=== PATIENT | female | born 1980 | race Caucasian/White ===

== ENCOUNTER 2021-03-18 15:56 | Emergency (ER) | payer OTHER, MEDICAID, SELFPAY ==
[2021-03-18 16:16] VITALS: BP 152/94; PULSE 87; RESP 12; TEMP 37.2; O2SAT 98; BMI 29.2
[2021-03-18] MEDS: KETOROLAC 30 MG/ML VIAL 15 MG IV (16:58)
--- NOTE | 2021-03-18 17:00 | ED_ITS ---
HPI - Abdominal Pain <MONI PayanP - Last Filed: 03/18/21 20:31> General Chief Complaint: Abdominal Pain Stated Complaint: Left Sided Abd Pain Time Seen by Provider: 03/18/21 15:59 Source: patient Mode of arrival: Ambulatory Limitations: no limitations History of Present Illness HPI narrative: This is a 40 year female, nonsmoker, has history of appendectomy who presents to ED with friend with chief complain of left low abdominal pain for 72 hours. Three days ago abdominal pain started on bilateral low abdomen and describes as discomfort as after strenuous exercise or labor pain like contraction, pulled muscle and spasming and rates as 3/10. Since yesterday pain is residing more consistently on left low abdomen. She reports frequent right-sided ovarian discomfort during ovulation which feels similar. Patient currently is a menses which started yesterday. Patient reports increased urination but denies other urinary symptoms such as dysuria, frequency, or hematuria. Patient reports pain increases with movements. Patient is not sure of fever or chills. Had some nausea this morning without vomiting. Last bowel movement this morning but noticed has been light in color as beige. Patient 2nd dose of COVID vaccination Moderna last week. Patient reports had similar colon pain when consumes cheese, cured meats or after drinking. PCP Dr. Stinson in [place]. Related Data Allergies Allergy/AdvReac Type Severity Reaction Status Date / Time Penicillins Allergy Verified 03/18/21 16:23 Review of Systems <Christiano Bryant [facility] - Last Filed: 03/18/21 20:31> Review of Systems Narrative: General: See HPI HEENT: Denies sinus pain, ear pain, sore throat, difficulty swallowing, dizziness. Respiratory: Denies dyspnea, cough, wheezing, hemoptysis, sputum. Cardiovascular: Denies chest pain, palpitations, orthopnea, edema. Gastrointestinal: See HPI : See HPI Musculoskeletal: Denies weakness, joint pain or bony pain. Skin: Denies rash, skin lesions, or other. Neurologic: Denies weakness, headache, numbness, change in speech, confusion, seizures, incoordination. Psychiatric: No concerning psychosocial issues. 12-point review of systems is negative except for those stated above. Patient History [facility] Last Filed: 03/18/21 20:31> Social History (Updated 03/18/21 @ 17:08 by JOE Payan) Smoking Status: Never smoker alcohol intake: never substance use type: does not use Smoking Status: Never smoker Substance Use Type: does not use Exam <JOE Payan - Last Filed: 03/18/21 20:31> Narrative Exam Narrative: GEN: Alert, oriented x 3, well appearing and nourished, and in no acute distress. Head: Normal cephalic, atraumatic. No scalp or temporal tenderness, palpable mass or rash. EYES: Pupils are equal, round, and reactive to light and accommodation. Extraocular muscles are intact bilaterally. There is no subconjunctival hemorrhage, exudate and sclera non-icteric. ENT: Hearing grossly intact. Airway patent. Neck: Trachea in midline. No JVD, non-tender without lymphadenopathy. No masses or thyroid megaly. Supple, non-tender and no meningeal signs. CARDIAC: Normal regular rate and rhythm without murmurs, gallops, or rubs. No chest wall tenderness. No peripheral edema, cyanosis or pallor. Capillary refill is less than 2 seconds. RESPIRATORY: Lungs are clear to auscultate bilaterally. No cough, wheezes, rales, or rhonchi. No stridor, respiratory distress, increase work of breathing, or accessary muscle used. ABD: Abdomen soft and non-distended. Tender to palpate in Left mid low quadrant. No guarding or rebound tenderness to palpate. Bowel sounds are normal in all 4 quadrants. There is no palpable masses or organomegaly. EXT: Full painless ROM of all extremities with no loss of sensation, strength, effusion or edema. SKIN: Warm, dry, normal color for patient. No erythema, lesions or rash over visible areas. BACK: Nontender without deformity or crepitance. No flank tenderness. NEUROLOGICAL: Alert and oriented to place, time and person. Sensation and motor function intact bilaterally. No facial droops, dysphasia. PSYCHIATRIC: Good judgement and reason, without hallucinations, abnormal affect or abnormal behaviors during the examination. Patient is not suicidal. Initial Vital Signs Initial Vital Signs: Vital Signs Temperature 98.9 F 03/18/21 16:16 Pulse Rate 87 03/18/21 16:16 Respiratory Rate 12 03/18/21 16:16 Blood Pressure 152/94 H 03/18/21 16:16 Pulse Oximetry 98 03/18/21 16:16 <Eladio Mejia DO - Last Filed: 03/19/21 07:15> Initial Vital Signs Initial Vital Signs: Vital Signs Temperature 98.9 F 03/18/21 16:16 Pulse Rate 87 03/18/21 16:16 Respiratory Rate 12 03/18/21 16:16 Blood Pressure 152/94 H 03/18/21 16:16 Pulse Oximetry 98 03/18/21 16:16 Scores <JOE Payan - Last Filed: 03/18/21 20:31> GCS [place] coma scale eye opening: Spontaneous [place] coma scale verbal response: Orientated [place] coma scale motor response: Obey commands [place] coma scale total score: 15 qSOFA Altered Mental Status (GCS <15): No Respiratory rate greater than/equal to 22: No Systolic blood pressure less than or equal to 100: No qSOFA Total: 0 0-1 Not High Risk 1-3 High risk Course <JOE Payan - Last Filed: 03/18/21 20:31> Orders Ordered: Discontinued Medications Ketorolac Tromethamine (Ketorolac 30 Mg/Ml Vial) 15 mg IV NOW ONE Stop: 03/18/21 16:31 Last Admin: 03/18/21 16:58 Dose: 15 mg Documented by: CHARLES Nguyen Consultation #1: Patient reports pain improved after Toradol administration. Informed the patient on mildly elevated WBC and additional imaging test has been ordered and verbalized the understanding. Time: 17:30 Vital Signs Vital signs: Vital Signs - 8 hr 03/18/21 16:16 03/18/21 17:44 03/18/21 17:47 Temperature 98.9 F Pulse Rate 87 75 76 Respiratory Rate 12 Blood Pressure 152/94 H 120/65 Pulse Oximetry 98 99 100 03/18/21 18:00 03/18/21 18:30 03/18/21 19:00 Temperature Pulse Rate 69 63 64 Respiratory Rate Blood Pressure 116/62 110/64 115/66 Pulse Oximetry 98 98 97 <Eladio Mejia DO - Last Filed: 03/19/21 07:15> Orders Ordered: Discontinued Medications Ketorolac Tromethamine (Ketorolac 30 Mg/Ml Vial) 15 mg IV NOW ONE Stop: 03/18/21 16:31 Last Admin: 03/18/21 16:58 Dose: 15 mg Documented by: CHARLES Vital Signs Vital signs: Vital Signs - 8 hr 03/18/21 16:16 03/18/21 17:44 03/18/21 17:47 Temperature 98.9 F Pulse Rate 87 75 76 Respiratory Rate 12 Blood Pressure 152/94 H 120/65 Pulse Oximetry 98 99 100 03/18/21 18:00 03/18/21 18:30 03/18/21 19:00 Temperature Pulse Rate 69 63 64 Respiratory Rate Blood Pressure 116/62 110/64 115/66 Pulse Oximetry 98 98 97 MDM - Abdominal Pain <JOE Payan - Last Filed: 03/18/21 20:31> Differential Diagnosis Differential diagnosis: Likely calculus of kidney, diverticulitis and other (ectopic ) Medical Records Attestation: I reviewed the patient's medical records. Lab Data Attestation: I reviewed the patient's lab results. Result diagrams: 03/18/21 16:56 03/18/21 16:56 Labs: Lab Results 03/18/21 03/18/21 03/18/21 Range/Units 16:56 16:56 16:56 WBC 11.1 H (4.5-11.0) X10^3/uL RBC 4.46 (4.0-5.2) X10^6/uL Hgb 13.0 (12.0-16.0) g/dL Hct 38.7 (36-46) % MCV 86.7 (80-100) fL MCH 29.2 (26-34) PG MCHC 33.7 (30-36) % RDW 12.7 (11.6-14.8) % Plt Count 244 (150-400) X10^3/uL Neut % (Auto) 72.7 (50-75) % Lymph % (Auto) 20.6 L (25-40) % Reeves % (Auto) 4.9 (3-14) % Eos % (Auto) 0.5 L (2-4) % Baso % (Auto) 1.3 (0-2) % Neut # (Auto) 8100 H (4769-0054) /uL Lymph # (Auto) 2300 (3827-9335) /uL Reeves # (Auto) 500 (0-900) /uL Eos # (Auto) 100 (0-450) /uL Baso # (Auto) 100 (0-100) /uL Sodium 140 (137-145) mmol/L Potassium 3.5 (3.4-5.1) mmol/L Chloride 106 (98-107) mmol/L Carbon Dioxide 24 (22-32) mmol/L BUN 8 (7-17) mg/dL Creatinine 0.63 (0.52-1.04) mg/dL Estimated GFR > 60.0 (>60) mL/min BUN/Creatinine Ratio 12.7 (6-22) Glucose 90 (70-100) mg/dL Lactate 1.0 (0.7-2.1) mmol/L Calcium 9.4 (8.4-10.2) mg/dL Total Bilirubin 0.2 (0.2-1.3) mg/dL AST 20 (14-36) IU/L ALT 12 (<35) IU/L Alkaline Phosphatase 37 L (38-126) U/L Total Protein 7.8 (6.3-8.2) g/dL Albumin 4.5 (3.5-5.0) g/dL Globulin 3.3 (1.7-4.1) g/dL Albumin/Globulin Ratio 1.4 (1.0-2.8) Lipase 118 (23-300) U/L Point of care testing: Point of Care Testing Test Results Negative Urine Dip Bedside Urine Glucose Negative Bedside Urine Bilirubin - Negative Bedside Urine Ketone - Negative Urine Specific [place] 1.015 Bedside Urine Occult Blood ++ Bedside Urine pH 6.0 Bedside Urine Protein - Negative Bedside Urine Urobilinogen - Negative Bedside Urine Nitrite - Negative Bedside Urine Leukocytes - Negative Esterase Imaging Data CT scan - abdomen/pelvis: Radiologist's Impression: [address] [id number] Scan ReportSigned Patient: Kori Martinez [facility]#: [id number]: 1980Acct:[id number]/Sex: 40 / FDate of Service: 03/18/21Loc: [facility] ccession Number: [id number] Procedure: CT abdomen pelvis w con Ordering Provider: Christiano Bryant PROCEDURE: CT ABDOMEN PELVIS W CON INDICATIONS: left low abdominal pain TECHNIQUE: After the administration of intravenous contrast, 5 mm thick sections acquired from the diaphragm to the symphysis. 5 mm coronal and sagittal reformats were acquired. For radiation dose reduction, the following was used: automated exposure control, adjustment of mA and/or kV according to patient size. COMPARISON: None. FINDINGS: Image quality: Excellent. ABDOMEN: Lung bases: Lung bases are clear. Heart size is normal. Solid organs: Liver is normal in size and enhancement. Focal fatty infiltration is seen adjacent to the falciform ligament. The gallbladder appears normal. Biliary system is non dilated. Pancreas enhances normally. Spleen is normal in size and enhancement. No adrenal nodules. Kidneys demonstrate normal size and enhancement, without hydronephrosis. Peritoneum and bowel: Focal fat stranding is seen along the anti mesenteric b order of the mid descending colon. The left colon is nondistended, which limits evaluation. No definite inflamed diverticulum is seen to suggest diverticulitis. The appendix is not well visualized, but no secondary signs of acute appendicitis are seen. There are no signs of bowel obstruction. There is no pneumoperitoneum. Nodes and vessels: No retroperitoneal or mesenteric adenopathy by size criteria. Aorta and inferior vena cava are normal in size. Miscellaneous: Tiny fat containing periumbilical hernias are present. PELVIS: Genitourinary: Bladder wall thickness is normal. The uterus is normal in size. No adnexal mass is seen. Miscellaneous: No inguinal hernias or adenopathy. Bones: No suspicious bony lesions. No vertebral body compression fractures. IMPRESSION: Focal inflammatory fat stranding along the anti-mesenteric border of the descending colon is suspicious for epiploic appendagitis or less likely colitis. No signs of acute diverticulitis are seen. Dictated by: Allan Arias M.D. on 03/18/2021 at 18:35 Approved by: Allan Arias M.D. on 03/18/2021 at 18:39 MDM Narrative Medical decision making narrative: This is a 40 year female who presents to ED with chief complain of left lower quadrant pain which started from bilateral abdominal pain 3 days ago. Physical exam leash aided left lower and mid quadrant discomfort with palpation. Patient does not appears to be toxic. Patient is afebrile and within normal vital signs. Urine test no indications for infection. Urine hCG test was negative. Mild leukocytosis with WBC of 11.1 and neutrophil count of 8100. Lactate was negative. Patient had similar discomfort on the right side during mobilization and contributes this to ovarian discomfort in the past. Concerned for diverticulitis, colitis and a bdomen/pelvis CT ordered. CT results indicates focal fat stranding seen along the anti mesenteric border of the mid descending colon without distension. No definite inflamed diverticulum suggesting diverticulitis or colitis. No signs of bowel obstructions or pneumo peritoneum and small fat containing tiny periumbilical hernia. Findings were shared with patient. Sized to take [id number] Tylenol or Motrin as needed for discomfort and to follow-up with primary care physician if pain persists. Return precautions discussed with patient and patient verbalized understanding in agreement with the treatment plan. <Eladio Mejia DO - Last Filed: 03/19/21 07:15> Lab Data Labs: Lab Results 03/18/21 03/18/21 03/18/21 Range/Units 16:56 16:56 16:56 WBC 11.1 H (4.5-11.0) X10^3/uL RBC 4.46 (4.0-5.2) X10^6/uL Hgb 13.0 (12.0-16.0) g/dL Hct 38.7 (36-46) % MCV 86.7 (80-100) fL MCH 29.2 (26-34) PG MCHC 33.7 (30-36) % RDW 12.7 (11.6-14.8) % Plt Count 244 (150-400) X10^3/uL Neut % (Auto) 72.7 (50-75) % Lymph % (Auto) 20.6 L (25-40) % Reeves % (Auto) 4.9 (3-14) % Eos % (Auto) 0.5 L (2-4) % Baso % (Auto) 1.3 (0-2) % Neut # (Auto) 8100 H (1267-9558) /uL Lymph # (Auto) 2300 (4948-6243) /uL Reeves # (Auto) 500 (0-900) /uL Eos # (Auto) 100 (0-450) /uL Baso # (Auto) 100 (0-100) /uL Sodium 140 (137-145) mmol/L Potassium 3.5 (3.4-5.1) mmol/L Chloride 106 (98-107) mmol/L Carbon Dioxide 24 (22-32) mmol/L BUN 8 (7-17) mg/dL Creatinine 0.63 (0.52-1.04) mg/dL Estimated GFR > 60.0 (>60) mL/min BUN/Creatinine Ratio 12.7 (6-22) Glucose 90 (70-100) mg/dL Lactate 1.0 (0.7-2.1) mmol/L Calcium 9.4 (8.4-10.2) mg/dL Total Bilirubin 0.2 (0.2-1.3) mg/dL AST 20 (14-36) IU/L ALT 12 (<35) IU/L Alkaline Phosphatase 37 L (38-126) U/L Total Protein 7.8 (6.3-8.2) g/dL Albumin 4.5 (3.5-5.0) g/dL Globulin 3.3 (1.7-4.1) g/dL Albumin/Globulin Ratio 1.4 (1.0-2.8) Lipase 118 (23-300) U/L Point of care testing: Point of Care Testing Test Results Negative Urine Dip Bedside Urine Glucose Negative Bedside Urine Bilirubin - Negative Bedside Urine Ketone - Negative Urine Specific [place] 1.015 Bedside Urine Occult Blood ++ Bedside Urine pH 6.0 Bedside Urine Protein - Negative Bedside Urine Urobilinogen - Negative Bedside Urine Nitrite - Negative Bedside Urine Leukocytes - Negative Esterase Discharge Plan Departure Patient Disposition: Home Clinical Impression: Epiploic appendagitis Abdominal pain Qualifiers: Abdominal location: left lower quadrant Qualified Code(s): R10.32 - Left lower quadrant pain Instructions: DI for Abdominal Pain-Adult Activity Restrictions/Additional Instructions: You have been diagnosed with [left-sided abdominal pain likely from epiploic appendagitis. Chemistry tests are unremarkable. Mild elevation in white count of 11.1 without indications of sepsis. Urine test was negative for infection and ]. What to do: *Take your medications as directed. You can take [id number] Tylenol and or Motrin as needed for discomfort. *Follow up with your primary care provider in 2-3 days, call for an appointment. Let them know you were seen in the ED and that we asked you to be seen in follow up. *Return to ED if you have any new, worsening, or concerning symptoms, such as [fever, worsening pain, unable to tolerate fluids, chest pain, breathing difficulty, feeling like faint, or any acute concerns]. Referrals: Mylene Lilly MD [Non-Staff] - <Eladio Mejia DO - Last Filed: 03/19/21 07:15> Cosign ED Attending Tetoature Attestation: I was immediately available in the department for consultation. This document ation has been reviewed and I agree with assessment and plan. Supervised by Elaido Mejia DO
[2021-03-18 17:12] LABS: Add Manual Diff / Slide Review NO; Basophils Absolute Auto 100 /uL (0-100); Basophils Percent Auto 1.3 % (0-2); Eosinophils Absolute Auto 100 /uL (0-450); Eosinophils Percent Auto 0.5 % (2-4); Hematocrit 38.7 % (36-46); Lymphocytes Absolute Auto 2300 /uL (1100-4500); Lymphocytes Percent Auto 20.6 % (25-40); Mean Corpuscular HGB Conc 33.7 % (30-36); Mean Corpuscular Hemoglobin 29.2 PG (26-34); Mean Corpuscular Volume 86.7 fL (80-100); Monocytes Absolute Auto 500 /uL (0-900); Monocytes Percent Auto 4.9 % (3-14); Neutrophils Absolute Auto 8100 /uL (1500-7000); Neutrophils Percent Auto 72.7 % (50-75); Platelet Count 244 X10^3/uL (150-400); Red Blood Cell Count 4.46 X10^6/uL (4.0-5.2); Red Cell Distribution Width 12.7 % (11.6-14.8); White Blood Cell Count 11.1 X10^3/uL (4.5-11.0)
[2021-03-18 17:24] LABS: Alanine Aminotransferase 12 IU/L (<35); Albumin 4.5 g/dL (3.5-5.0); Albumin Globulin Ratio 1.4 (1.0-2.8); Alkaline Phosphatase 37 U/L (38-126); Aspartate Aminotransferase 20 IU/L (14-36); BUN Creatinine Ratio 12.7 (6-22); Bilirubin Total 0.2 mg/dL (0.2-1.3); Blood Urea Nitrogen 8 mg/dL (7-17); Calcium 9.4 mg/dL (8.4-10.2); Carbon Dioxide 24 mmol/L (22-32); Chloride 106 mmol/L (98-107); Estimated Glomerular Filt Rate > 60.0 mL/min (>60); Globulin 3.3 g/dL (1.7-4.1); Glucose 90 mg/dL (70-100); HEMOLYSIS < 15 (0-50); Lipase 118 U/L (23-300); Potassium 3.5 mmol/L (3.4-5.1); Sodium 140 mmol/L (137-145); Total Protein 7.8 g/dL (6.3-8.2)
--- NOTE | 2021-03-18 17:26 | DI.CT.S_ITS ---
PROCEDURE: CT ABDOMEN PELVIS W CON INDICATIONS: left low abdominal pain TECHNIQUE: After the administration of intravenous contrast, 5 mm thick sections acquired from the diaphragm to the symphysis. 5 mm coronal and sagittal reformats were acquired. For radiation dose reduction, the following was used: automated exposure control, adjustment of mA and/or kV according to patient size. COMPARISON: None. FINDINGS: Image quality: Excellent. ABDOMEN: Lung bases: Lung bases are clear. Heart size is normal. Solid organs: Liver is normal in size and enhancement. Focal fatty infiltration is seen adjacent to the falciform ligament. The gallbladder appears normal. Biliary system is non dilated. Pancreas enhances normally. Spleen is normal in size and enhancement. No adrenal nodules. Kidneys demonstrate normal size and enhancement, without hydronephrosis. Peritoneum and bowel: Focal fat stranding is seen along the anti mesenteric border of the mid descending colon. The left colon is nondistended, which limits evaluation. No definite inflamed diverticulum is seen to suggest diverticulitis. The appendix is not well visualized, but no secondary signs of acute appendicitis are seen. There are no signs of bowel obstruction. There is no pneumoperitoneum. Nodes and vessels: No retroperitoneal or mesenteric adenopathy by size criteria. Aorta and inferior vena cava are normal in size. Miscellaneous: Tiny fat containing periumbilical hernias are present. PELVIS: Genitourinary: Bladder wall thickness is normal. The uterus is normal in size. No adnexal mass is seen. Miscellaneous: No inguinal hernias or adenopathy. Bones: No suspicious bony lesions. No vertebral body compression fractures. IMPRESSION: Focal inflammatory fat stranding along the anti-mesenteric border of the descending colon is suspicious for epiploic appendagitis or less likely colitis. No signs of acute diverticulitis are seen. Dictated by: Allan Arias M.D. on 03/18/2021 at 18:35 Approved by: Allan Arias M.D. on 03/18/2021 at 18:39
[2021-03-18 17:44] VITALS: PULSE 75; O2SAT 99
[2021-03-18 17:47] VITALS: BP 120/65; PULSE 76; O2SAT 100
[2021-03-18 18:00] VITALS: BP 116/62; PULSE 69; O2SAT 98
[2021-03-18 18:30] VITALS: BP 110/64; PULSE 63; O2SAT 98
[2021-03-18 19:00] VITALS: BP 115/66; PULSE 64; O2SAT 97
== END 2021-03-18 19:43 | disposition home or self-care (01) ==
PROVIDERS: Emergency Provider Nurse Practitioner Family
DX: K63.89 Other specified diseases of intestine (principal); R10.32 Left lower quadrant pain
CPT/HCPCS: 36415; 74177; 80053; 81003; 81025; 83605; 83690; 85025; 96374; 99284; J1885